=== PATIENT | male | born 1950 | race Two or more races ===

== ENCOUNTER 2024-09-10 18:49 | Emergency (ER) | payer MEDICARE, MEDICAID ==
[~2024-09-10] VITALS: Ht 180.3 cm; Wt 69.7 kg
--- NOTE | 2024-09-10 19:11 | ECG ---
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
--- NOTE | 2024-09-10 21:59 | ED.PDOC ---
History of Present Illness HPI Thanh 73 y/o M, with a history of alcohol abuse, presents with c/o intermittent nausea and generalized bodyaches for the past two days status post stopping alcohol use at that time. Patient reports onset of symptoms, this evening, after complete cessation of alcohol consumption 2 days ago. Patient denies any generalized tremors, vomiting, abdominal pain, or other associated symptoms or modifiers at this time. Vital signs were stable at arrival. Chief Complaint: Withdrawal Time Seen by MD: 19:10 Reviewed Notes: Nurses Notes, Medications, Allergies Allergies: Coded Allergies: NO KNOWN ALLERGIES (Unverified , 09/10/24) Information Source: Patient Mode of Arrival: Ambulatory Severity: Moderate Timing: Hours Duration: Since onset Prehospital treatment: None Past Medical History PAST MEDICAL HISTORY: Thyroid Surgical History: Denies all surgeries Family History Family History: Unknown Social History Smoker: Cigarettes Alcohol: Heavy Drugs: Marijuana Lives In: Home Constitutional: reports: fatigue; denies: chills, diaphoresis, fever, malaise, sweats, weakness, others EENTM: denies: blurred vision, double vision, ear bleeding, ear discharge, ear drainage, ear pain, ear ringing, eye pain, eye redness, hearing loss, mouth pain, mouth swelling, nasal discharge, nose bleeding, nose congestion, nose pain, photophobia, tearing, throat pain, throat swelling, voice changes, others Respiratory: denies: cough, hemoptysis, orthopnea, SOB at rest, shortness of breath, SOB with excertion, stridor, wheezing, others Cardiovascular: denies: chest pain, dizzy spells, diaphoresis, Dyspnea on exertion, edema, irregular heart beat, left arm pain, lightheadedness, palpitations, PND, syncope, others Gastrointestinal: denies: abdomen distended, abdominal pain, blood streaked bowels, constipated, diarrhea, dysphagia, difficulty swallowing, hematemesis, melena, nausea, poor appetite, poor fluid intake, rectal bleeding, rectal pain, vomiting, others Genitourinary: denies: burning, dysuria, flank pain, frequency, hematuria, incontinence, penile discharge, penile sore, pain, testicle pain, testicle swelling, urgency, others Neurological: denies: dizziness, fainting, headache, left sided numbness, left sided weakness, numbness, paresthesia, pre-existing deficit, right sided num bness, right sided weakness, seizure, speech problems, tingling, tremors, weakness, others Musculoskeletal: reports: others (Global body aches); denies: back pain, gout, joint pain, joint swelling, muscle pain, muscle stiffness, neck pain Integumetry: denies: bruises, change in color, change in hair/nails, dryness, laceration, lesions, lumps, rash, wounds, others Allergic/Immunocompromised: denies: Difficulty Healing, Frequent Infections, Hives, Itching, others Hematologic/Lymphatic: denies: anemia, blood clots, easy bleeding, easy bruising, swollen glands, others Endocrine: denies: excessive hunger, excessive sweating, excessive thirst, excessive urination, flushing, intolerance to cold, intolerance to heat, unexplained weight gain, unexplained weight loss, others Psychiatric: denies: anxiety, bipolar disorder, depression, hopeless, panic disorder, schizophrenia, sleepless, suicidal, others All Other Systems: Reviewed and Negative (as per HPI) Physical Exam General Appearance: No Apparent Distress (Patient appears to be detoxing from alcohol abuse. Patient was slightly diaphoretic and slightly waking.), Normal HEENT: Normal ENT Inspection, Pharynx Normal, TMs Normal Neck: Full Range of Motion, Non-Tender, Normal, Normal Inspection Respiratory: Chest Non-Tender, Lungs Clear, No Accessory Muscle Use, No Respiratory Distress, Normal Breath Sounds Cardiovascular: No Edema, No JVD, No Murmur, No Gallop, Normal Peripheral Pulses, Regular Rate/Rhythm Breast Exam: Deferred Gastrointestinal: No Organomegaly, Non Tender, No Pulsatile Mass, Normal Bowel Sounds, Soft Genitalia: Deferred Pelvic: Deferred Rectal: Deferred Extremities: No calf tenderness, Normal capillary refill, Normal inspection, Normal range of motion, Non-tender, No pedal edema Neurologic: Alert, No Motor Deficits, Normal Affect, Normal Mood, No Sensory Deficits Cerebellar Function: Normal Reflexes: Normal Skin: Dry, Normal Color, Warm Lymphatic: No Adenopathy Was a procedure done? Was a procedure done?: No EKG EKG : Pulse Rate (adult): 86 [place]: Normal Cardiac Rhythm: NSR Block: None Hypertrophy: None ST: Normal Differential Dx Considerations may include: substance abuse, alcohol withdrawal X-Ray, Labs, Meds, VS Vital Signs Date Time Temp Pulse Resp B/P (MAP) Pulse Ox O2 Delivery O2 Flow Rate FiO2 09/10/24 23:45 98.1 93 18 147/91 (109) 97 98.1 09/10/24 21:59 86 09/10/24 19:07 86 09/10/24 18:57 97.9 96 18 135/93 (107) 98 97.9 X-Ray, Labs, Meds, VS Comment Patient received fluids, thiamine and Zofran while at the facility. Advised patient I will send her home with a anti nausea medication but additionally, advised patient that he needs to follow up with a alcohol cessation programs such as AA. If patient has difficulties establishing that, advised patient he can return to this facility on Friday for a social service consultation. Time of 1ST Reevaluation: 00:13 Reevaluation 1ST: Improved Consultation: PCP, Other (SERINA) Patient Education/Counseling: Diagnosis, Treatment Family Education/Counseling: Diagnosis, Treatment, No Family Present Departure 1 Departure Time of Disposition: 00:13 Impression: Primary Impression: Alcohol abuse Additional Impression: Substance abuse Disposition: HOME / SELF CARE / HOMELESS Condition: Stable Additional Instructions: Advised patient utilize medication as needed as well as good hydration and healthy nutrition for the next several months. Patient needs to establish a a ssistance with a alcohol cessation programs such as AA. If patient has difficulties securing that rehab assistance, returned to this facility for social service evaluation and assistance. e-Prescriptions Ondansetron Odt 4MG Tab (ZOFRAN PO) 4 Mg Tb 4 MG PO Q6HP PRN, #20 TAB ODT TAB-DISSOLVE IN MOUTH, THEN SWALLOW Prov: YVON BASSETT PAC 09/11/24 Discharged With: Self Critical Care Note Critical Care Time?: No Stability Stability form required: No Heart Score Heart Score: Heart Score Response (Comments) Value History N/A 0 EKG N/A 0 Age N/A 0 Risk Factors N/A 0 Troponin N/A 0 Total 0 I personally scribed for YVON BASSETT PAC ([email or web address]) on 09/10/24 at 21:59. Electronically submitted by Miguelito Moore ([email or web address]). YVON BASSETT PAC Sep 10, 2024 21:59
[2024-09-11] MEDS ORDERED: ZOFR4T PO (00:15)
[2024-09-11] MEDS: SODIUM CHLORIDE 0.9% 2,000 ML IV ONE (00:43)
[2024-09-11] MEDS: THIAMINE 100mg/ml INJ (200mg/2ml VIAL) IV ONE (00:45)
[2024-09-11] MEDS: ONDANSETRON HCL 4 MG/2 ML VIAL IV ONE (00:45)
[2024-09-11 00:50] VITALS: PULSE 93; RESP 18; O2SAT 97
[2024-09-11 02:20] VITALS: BP 167/97; PULSE 90; RESP 20; TEMP 98.1; O2SAT 96
== END 2024-09-11 02:20 | disposition home or self-care (01) ==
LOC: ER 18:49
DX: F10.10 Alcohol abuse, uncomplicated (principal); F19.10 Other psychoactive substance abuse, uncomplicated; F17.210 Nicotine dependence, cigarettes, uncomplicated; F12.90 Cannabis use, unspecified, uncomplicated; Z79.899 Other long term (current) drug therapy; Y90.9 Presence of alcohol in blood, level not specified
CPT/HCPCS: 93005; 96361; 96374; 96375; 99285; J7030